=== PATIENT | female | born 1985 | race Caucasian/White ===

== ENCOUNTER 2017-04-24 13:03 | Emergency (ER) | payer BC ==
[2017-04-24] MEDS ORDERED: LORazepam 2 MG/ML MDV ONE (13:17)
[2017-04-24] MEDS ORDERED: LORazepam 2 MG/ML MDV IVPUSH ONE (13:20)
--- NOTE | 2017-04-24 13:33 | EDM.PDOC ---
ED HPI GENERAL MEDICAL PROBLEM - General Chief Complaint: Cardiovascular Problem Stated Complaint: IRREGULAR HEARTRATE,SHORTNESS OF BREATH Time Seen by Provider: 04/24/17 13:18 Source of Information: Reports: Patient History Limitations: Reports: No Limitations - History of Present Illness INITIAL COMMENTS - FREE TEXT/NARRATIVE: PT STATES SHE WAS RESTING ON COUCH AND FELT LIKE HEART WAS RACING. BECAME SOB AND WEAK. PT WAS BROUGHT TO ER BY . DENIES CP, FEVER, N/V/D, H/O SAME IN PAST, OUT OF COUNTRY TRAVEL, LEG EDEMA, OR TRAUMA. NO SPECIFIC STRESSORS BUT NOT SLEEPING WELL LATELY. Onset: Today Onset Date: 04/24/17 Onset Time: 12:30 Duration: Hour(s): Location: Reports: Chest Severity: Mild Improves with: Reports: None Worsens with: Reports: None Associated Symptoms: Reports: Shortness of Breath, Weakness - Related Data Allergies Allergy/AdvReac Type Severity Reaction Status Date / Time No Known Drug Allergies Allergy Cannot Verified 04/24/17 13:33 Remember Home Meds: Home Meds . [No Known Home Meds] 04/24/17 [History] ED ROS GENERAL - Review of Systems Review Of Systems: ROS reveals no pertinent complaints other than HPI. Constitutional: Reports: Weakness HEENT: Reports: No Symptoms Respiratory: Reports: Shortness of Breath Cardiovascular: Reports: Palpitations Endocrine: Reports: No Symptoms GI/Abdominal: Reports: No Symptoms : Reports: No Symptoms Musculoskeletal: Reports: No Symptoms Skin: Reports: No Symptoms Neurological: Reports: No Symptoms Psychiatric: Reports: No Symptoms Hematologic/Lymphatic: Reports: No Symptoms Immunologic: Reports: No Symptoms ED EXAM, GENERAL - Physical Exam Exam: See Below Exam Limited By: No Limitations General Appearance: Alert, WD/WN, Mild Distress Eye Exam: Bilateral Eye: Normal Inspection Ears: Normal External Exam, Normal Canal Nose: Normal Inspection, Normal Mucosa, No Blood Throat/Mouth: Normal Inspection, Normal Lips, Normal Oropharynx, Normal Voice, No Airway Compromise Head: Atraumatic, Normocephalic Neck: Normal Inspection, Supple, Non-Tender Respiratory/Chest: No Respiratory Distress, Lungs Clear, Normal Breath Sounds, No Accessory Muscle Use, Chest Non-Tender Cardiovascular: No Murmur, Tachycardia GI/Abdominal: Normal Bowel Sounds, Soft, Non-Tender, No Distention, No Mass Back Exam: Normal Inspection. No: CVA Tenderness (L), CVA Tenderness (R) Extremities: Normal Inspection, Non-Tender, No Pedal Edema Neurological: Alert, Oriented, CN II-XII Intact, Normal Cognition, No Motor/ Sensory Deficits Psychiatric: Anxious Skin Exam: Warm, Dry, Intact, Normal Color, No Rash Lymphatic: No Adenopathy EKG INTERPRETATION EKG Date: 04/24/17 Time: 14:00 Rhythm: other (SINUS TACH) Rate (beats/min): 112 [place]: normal P-wave: present ST-T: normal QT: normal Comparison: NA - no prior EKG EKG Interpretation Comments: SINUS TACH Course - Orders/Labs/Meds Orders: Active Orders 24 hr Category Date Time Status EKG Documentation Completion [RC] ASDIRECTED Care 04/24/17 13:20 Ordered Chest 1V Frontal [CR] Stat Exams 04/24/17 13:18 Ordered COMPREHENSIVE METABOLIC PN,CMP [CHEM] Stat Lab 04/24/17 13:18 Ordered D-DIMER QUANTITATIVE [COAG] Stat Lab 04/24/17 13:20 Ordered HCG QUALITATIVE,SERUM [CHEM] Stat Lab 04/24/17 13:20 Ordered TROPONIN I [CHEM] Stat Lab 04/24/17 13:18 Ordered EKG 12 Lead [EK] Routine Ther 04/24/17 13:20 Ordered Labs: Laboratory Tests 04/24/17 Range/Units 13:15 WBC 9.9 (5.0-10.0) 10^3/uL RBC 4.22 (3.80-5.50) 10^6/uL Hgb 14.2 (12.0-16.0) g/dL Hct 41.3 (37.0-47.0) % MCV 97.7 H (82.0-92.0) fL MCH 33.7 H (27.0-31.0) pg MCHC 34.5 (32.0-36.0) g/dL RDW 14.0 (11.5-14.5) % Plt Count 237 (150-300) 10^3/uL MPV 7.4 (7.4-10.4) fL Neut % (Auto) 51.4 (50.0-70.0) % Lymph % (Auto) 39.0 (20.0-40.0) % [place] % (Auto) 6.6 (2.0-8.0) % Eos % (Auto) 2.6 (1.0-3.0) % Baso % (Auto) 0.4 (0.0-1.0) % Neut # (Auto) 5.0 (2.5-7.0) 10^3/uL Lymph # (Auto) 3.9 (1.0-4.0) 10^3/uL [place] # (Auto) 0.7 (0.1-0.8) 10^3/uL Eos # (Auto) 0.3 (0.1-0.3) 10^3/uL Baso # (Auto) 0.0 (0.0-0.1) 10^3/uL Meds: Medications Discontinued Medications Generic Name Dose Route Start Last Admin Trade Name Angela PRN Reason Stop Dose Admin Lorazepam Confirm 04/24/17 13:17 Ativan Administered 04/24/17 13:18 Dose 2 mg .ROUTE .STK-MED ONE Lorazepam 1 mg 04/24/17 13:20 Ativan IVPUSH 04/24/17 13:21 ONETIME ONE - Re-Assessments/Exams Free Text/Narrative Re-Assessment/Exam: 04/24/17 14:23 PT AFEBRILE, NONTOXIC APPEARING, VSS, DENIES CP, SOB, PALPITATIONS, FEELS MUCH BETTER Departure - Departure Time of Disposition: 14:25 Disposition: Home, Self-Care 01 Condition: good Clinical Impression: Hypokalemia, Panic anxiety syndrome Instructions: Panic Attacks, [id number], Hypokalemia, Potassium Content of Foods Additional Instructions: FOLLOW UP WITH PCP IN NEXT 1-2 DAYS. RETURN TO ER SOONER IF SYMPTOMS CONTINUE - My Orders Last 24 Hours: My Active Orders 04/24/17 13:18 Chest 1V Frontal [CR] Stat COMPREHENSIVE METABOLIC PN,CMP [CHEM] Stat TROPONIN I [CHEM] Stat 04/24/17 13:20 EKG Documentation Completion [RC] ASDIRECTED D-DIMER QUANTITATIVE [COAG] Stat HCG QUALITATIVE,SERUM [CHEM] Stat EKG 12 Lead [EK] Routine - Assessment/Plan Last 24 Hours: My Active Orders 04/24/17 13:18 Chest 1V Frontal [CR] Stat COMPREHENSIVE METABOLIC PN,CMP [CHEM] Stat TROPONIN I [CHEM] Stat 04/24/17 13:20 EKG Documentation Completion [RC] ASDIRECTED D-DIMER QUANTITATIVE [COAG] Stat HCG QUALITATIVE,SERUM [CHEM] Stat EKG 12 Lead [EK] Routine Assessment:: ANXIETY/PANIC ATTACK / HYPOKALEMIA Plan: F/U WITH PCP
[2017-04-24 13:39] LABS: CHLORIDE,CL 99 mmol/L (98-115); SODIUM,NA 141 mmol/L (136-145)
[2017-04-24] MEDS ORDERED: Potassium Chloride 20 MEQ Tab.ER PO ONE (13:41)
[2017-04-24 14:18] VITALS: BP 111/48
== END 2017-04-24 14:45 | disposition home or self-care (01) ==
LOC: KA.ED 13:03
DX: F41.0 Panic disorder [episodic paroxysmal anxiety] (principal); E87.6 Hypokalemia
CPT/HCPCS: 36415; 71010; 80053; 84484; 84703; 85025; 85379; 93005; 96374; 99285; A9270; J2060